=== PATIENT | female | born 1995 | race Caucasian/White ===

== ENCOUNTER 2019-10-17 00:31 | Inpatient (IN) | payer MEDICAID ==
[2019-10-17] MEDS ORDERED: Lidocaine 1% 50 ML MDV INJECT PRN (03:38)
[2019-10-17] MEDS ORDERED: Misoprostol 200 MCG Tab PO PRN (03:38)
[2019-10-17] MEDS ORDERED: Sodium Chloride 0.9% 2.5 ML Syringe FLUSH PRN (03:38)
[2019-10-17] MEDS ORDERED: Tranexamic Acid 1,000 MG in Sodium Chloride 0.9% 100 ML IV PRN (03:38)
[2019-10-17] MEDS ORDERED: Nalbuphine 10 MG/1 ML Vial IVPUSH PRN (03:38)
[2019-10-17] MEDS ORDERED: Water For Irrigation,Sterile 1,000 ML Container IRR PRN (03:38)
[2019-10-17] MEDS ORDERED: Butorphanol 1 MG/ML SDV IVPUSH PRN (03:38)
[2019-10-17] MEDS ORDERED: Methylergonovine 0.2 MG/1 ML Amp IM PRN (03:38)
[2019-10-17] MEDS ORDERED: Carboprost Tromethamine 250 MCG/1 ML Amp IM PRN (03:38)
[2019-10-17] MEDS ORDERED: Sodium Chloride 0.9% 10 ML SDV IV PRN (03:38)
[2019-10-17] MEDS ORDERED: Sodium Chloride 0.9% 10 ML Syringe FLUSH PRN (03:38)
[2019-10-17] MEDS ORDERED: Ondansetron 4 MG/2 ML SDV IVPUSH PRN (03:38)
[2019-10-17] MEDS ORDERED: Oxytocin/0.9 % Sodium Chloride 30 UNIT/500 ML BAG IV SCH ×2 (03:45→08:15)
[2019-10-17] MEDS: Lactated Ringers 1,000 ML IV SCH ×3 (03:55→08:01)
--- NOTE | 2019-10-17 04:20 | PCM.PREANE ---
Preanesthetic Assessment - Anesthesia/Transfusion/Family Hx Anesthesia History: Prior Anesthesia Without Reaction Transfusion History: No Prior Transfusion(s) - Review of Systems General: No Symptoms Pulmonary: No Symptoms Cardiovascular: No Symptoms Gastrointestinal: No Symptoms Neurological: No Symptoms Other: Reports: None - Physical Assessment Weight: 93.44 kg ASA Class: 2E Mental Status: Alert & Oriented x3 Dentition: Reports: Normal Dentition ROM/Head Extension: Full Lungs: Clear to Auscultation, Normal Respiratory Effort Cardiovascular: Regular Rate, Regular Rhythm - Lab Values: Laboratory Last Values WBC 12.66 K/uL (4.0-11.0) H 10/17/19 04:00 RBC 4.64 M/uL (4.30-5.90) 10/17/19 04:00 Hgb 13.4 g/dL (12.0-16.0) 10/17/19 04:00 Hct 39.6 % (36.0-46.0) 10/17/19 04:00 MCV 85.3 fL (80.0-98.0) 10/17/19 04:00 MCH 28.9 pg (27.0-32.0) 10/17/19 04:00 MCHC 33.8 g/dL (31.0-37.0) 10/17/19 04:00 RDW Std Deviation 43.7 fl (28.0-62.0) 10/17/19 04:00 RDW Coeff of Tana 14 % (11.0-15.0) 10/17/19 04:00 Plt Count 159 K/uL (150-400) 10/17/19 04:00 MPV 12.20 fL (7.40-12.00) H 10/17/19 04:00 Nucleated RBC % 0.0 /100WBC 10/17/19 04:00 Nucleated RBCs # 0 K/uL 10/17/19 04:00 - Allergies Allergies/Adverse Reactions: Allergies Allergy/AdvReac Type Severity Reaction Status Date / Time No Known Allergies Allergy Verified 03/31/19 19:43 - Acknowledgements Anesthesia Type Planned: Epidural Pt an Appropriate Candidate for the Planned Anesthesia: Yes Alternatives and Risks of Anesthesia Discussed w Pt/Guardian: Yes Pt/Guardian Understands and Agrees with Anesthesia Plan: Yes PreAnesthesia Questionnaire Other HEENT History: glasses Cardiovascular History: Reports: Other (See Below) Other Cardiovascular History: Preeclampsia this Respiratory History: Reports: Asthma Gastrointestinal History: Reports: GERD Genitourinary History: Reports: None 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: , Other (See Below) Other OB/BYN History: Preeclampsia this Musculoskeletal History: Reports: None Neurological History: Reports: None Psychiatric History: Reports: None Endocrine/Metabolic History: Reports: Obesity/BMI 30+ Hematologic History: Reports: None Immunologic History: Reports: None Oncologic (Cancer) History: Reports: None Dermatologic History: Reports: Eczema - Infectious Disease History Infectious Disease History: Reports: Chicken Pox - Past Surgical History Head Surgeries/Procedures: Reports: None - HOME MEDS Home Medications: Home Meds Albuterol Sulfate [Proair Respiclick] 2 puff INH Q6HR PRN 07/06/15 [History] - CURRENT (IN HOUSE) MEDS Current Meds: Current Medications Butorphanol Tartrate (Stadol) 1 mg IVPUSH Q1H PRN PRN Reason: Pain Carboprost Tromethamine (Hemabate Ds) 250 mcg IM ASDIRECTED PRN PRN Reason: Post Hemorrhage Tranexamic Acid 1,000 mg/ (Sodium Chloride) 110 mls @ 660 mls/hr IV ONETIME PRN PRN Reason: Bleeding Lactated Ringer's (Ringers, Lactated) 1,000 mls @ 150 mls/hr IV ASDIRECTED [facility] Last Admin: 10/17/19 04:12 Dose: 999 mls/hr Oxytocin/Sodium Chloride (Oxytocin 30 Unit/500 Ml-Ns) 30 unit in 500 mls @ 500 mls/hr IV TITRATE [facility] Lidocaine HCl (Xylocaine 1%) 50 ml INJECT ONETIME PRN PRN Reason: Laceration repair Methylergonovine Maleate (Methergine) 0.2 mg IM ASDIRECTED PRN PRN Reason: Post Hemorrhage Misoprostol (Cytotec) 200 mcg PO ONETIME PRN PRN Reason: Post Hemorrhage Nalbuphine HCl (Nubain) 10 mg IVPUSH Q1H PRN PRN Reason: Pain (severe 7-10) Ondansetron HCl (Zofran) 4 mg IVPUSH Q6H PRN PRN Reason: Nausea/Vomiting Sodium Chloride (Saline Flush) 10 ml FLUSH ASDIRECTED PRN PRN Reason: Keep Vein Open Sodium Chloride (Saline Flush) 2.5 ml FLUSH ASDIRECTED PRN PRN Reason: Keep Vein Open Sodium Chloride (Normal Saline) 10 ml IV ASDIRECTED PRN PRN Reason: IV Use Sterile Water (Sterile Water For Irrigation) 1,000 ml IRR ASDIRECTED PRN PRN Reason: delivery
[2019-10-17] MEDS ORDERED: fentaNYL 100 MCG/2 ML SDV ONE (04:24)
[2019-10-17] MEDS ORDERED: Bupivicaine/fentaNYL/NS 250 ML ONE (04:24)
[2019-10-17] MEDS ORDERED: Bupivacaine 0.25% 10 ML SDV ONE (04:24)
[2019-10-17] MEDS ORDERED: Terbutaline 1 MG/ML SDV SUBCUT PRN (08:02)
[2019-10-17] MEDS ORDERED: Docusate Sodium 100 MG Cap PO PRN (09:46)
[2019-10-17] MEDS ORDERED: Acetaminophen 500 MG Tab PO PRN ×2 (09:46)
[2019-10-17] MEDS ORDERED: Witch Hazel Medicated Pads 40/Jar TOP PRN (09:46)
[2019-10-17] MEDS ORDERED: oxyCODONE 5 MG Tab PO PRN (09:46)
[2019-10-17] MEDS ORDERED: Lanolin 100% Cream 7 GM Tube TOP PRN (09:46)
[2019-10-17] MEDS ORDERED: Bisacodyl 10 MG Supp RECTAL PRN (09:46)
[2019-10-17] MEDS ORDERED: Benzocaine/Menthol 20%-0.5% Spray 78 GM Cannister TOP PRN (09:46)
[2019-10-17] MEDS ORDERED: Ibuprofen 400 MG Tab PO PRN (09:46)
--- NOTE | 2019-10-17 09:53 | PCM.OPNOTE ---
- General Post-Op/Procedure Note Date of Surgery/Procedure: 10/17/19 Operative Procedure(s): /IP Findings: Viable male APGARs 9, 9 weight 3350 gm. Spontaneous delivery intact placenta with 3V cord Pre Op Diagnosis: 38 week IUP. Labor Post-Op Diagnosis: Same Anesthesia Technique: Epidural Primary Surgeon: Carmel Bourne EBL in mLs: 200 Complications: none known Condition: Good Free Text/Narrative:: Dictation [id number]
--- NOTE | 2019-10-17 10:39 | OR ---
SURGEON: Carmel Bourne M.D. DATE OF PROCEDURE: 10/17/2019 PREOPERATIVE DIAGNOSES: 1. A 38-4/7 weeks' intrauterine . 2. Active labor. POSTOPERATIVE DIAGNOSES: 1. A 38-4/7 weeks' intrauterine . 2. Active labor. PROCEDURE: Spontaneous vaginal delivery, intact perineum. PRIMARY SURGEON: Carmel Bourne MD. ANESTHESIA: Epidural. ESTIMATED BLOOD LOSS: 200 mL. COMPLICATIONS: None known. FINDINGS: Viable male. scores 9 at one minute and 9 at five minutes. Weight of 3350 g. Spontaneous delivery, intact placenta, 3-vessel cord. DISPOSITION: to nursery, mom in LDRP. 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 She was admitted, routine labs were drawn. IV hydration was initiated. As she became increasingly uncomfortable, underwent regional anesthesia in the form of epidural, became more comfortable. Shortly before 8 a.m., she was found to be 5 cm, 80% effaced, minus 1 station. However, after epidural, the contractions spaced considerably, therefore, was initiated on Pitocin augmentation. She responded nicely to this and shortly before 9 a.m. was found to be 8 and within the next half hour progressed to complete, 100% effaced, +2 station, and was ready to push. I was called for delivery. Upon my arrival, the patient was placed in modified dorsal lithotomy position, began pushing efforts. With next two contractions, able to push to deliver 's head atraumatically spontaneously, followed by anterior shoulder, posterior shoulder, and remainder of the body without difficulty. The infant's oropharynx and nares were bulb suctioned. Infant was handed off to her mother with attending nursing staff at side. After a delay, cord was clamped x2 and cut. Cord arterial, cord venous, cord blood sampling obtained. Light pressure was applied while the placenta was delivered spontaneously intact. Vigorous fundal uterine massage was then applied while 30 units of Pitocin was delivered in 500 mL of IV fluid. Upon inspection of cervix, vaginal sidewalls, and perineum, these were found to be intact. Uterus remained firm. Sponge and instrument count was correct. The patient remained in LDRP, to nursery. MAGGIE / KALIE /[id number]
[2019-10-17] MEDS: Ibuprofen 800 MG Tab PO PRN (18:48)
[2019-10-18] MEDS: Ibuprofen 800 MG Tab PO PRN (01:55)
[2019-10-18 08:30] VITALS: BP 125/81; PULSE 72
--- NOTE | 2019-10-18 08:41 | PCM48HPAN ---
Post Anesthesia Note - EVALUATION WITHIN 48HRS OF ANESTHETIC Vital Signs in Normal Range: Yes Patient Participated in Evaluation: Yes Respiratory Function Stable: Yes Airway Patent: Yes Cardiovascular Function Stable: Yes Hydration Status Stable: Yes Pain Control Satisfactory: Yes Nausea and Vomiting Control Satisfactory: Yes Mental Status Recovered: Yes Vital Signs: Last Vital Signs Temp 36.6 C 10/18/19 08:24 Pulse 72 10/18/19 08:24 Resp 15 10/18/19 08:24 BP 125/81 10/18/19 08:24 Pulse Ox 96 10/18/19 08:24
--- NOTE | 2019-10-18 09:53 | PCM.PNPP ---
- General Info Date of Service: 10/18/19 Functional Status: Reports: Pain Controlled, Tolerating Diet, Ambulating, Urinating - Review of Systems General: Reports: Fatigue. Denies: Fever, Weakness Pulmonary: Denies: Shortness of Breath Cardiovascular: Denies: Chest Pain, Palpitations, Lightheadedness Gastrointestinal: Denies: Abdominal Pain, Nausea, Vomiting Genitourinary: Denies: Flank Pain Musculoskeletal: Reports: No Symptoms Skin: Reports: No Symptoms Neurological: Reports: No Symptoms Psychiatric: Reports: No Symptoms - General Info Date of Service: 10/18/19 - Patient Data Vital Signs - Most Recent: Last Vital Signs Temp 36.6 C 10/18/19 08:24 Pulse 72 10/18/19 08:24 Resp 15 10/18/19 08:24 BP 125/81 10/18/19 08:24 Pulse Ox 96 10/18/19 08:24 Weight - Most Recent: 93.44 kg Lab Results - Last 24 Hours: Laboratory Results - last 24 hr 10/17/19 10/18/19 Range/Units 09:34 06:29 Hgb 12.7 (12.0-16.0) g/dL Hct 38.4 (36.0-46.0) % Cord ABG pH 7.316 (7.18-7.38) Cord ABG Base Excess -5 (-10--2) Cord VBG pH 7.317 (7.25-7.45) Cord VBG Base Excess -5 (-10--2) Med Orders - Current: Current Medications Acetaminophen (Tylenol Extra Strength) 500 mg PO Q4H PRN PRN Reason: Pain Acetaminophen (Tylenol Extra Strength) 1,000 mg PO Q4H PRN PRN Reason: Pain Last Admin: 10/17/19 22:33 Dose: 1,000 mg Benzocaine/Menthol (Dermoplast Pain Relief 20%-0.5% Hull) 78 gm TOP ASDIRECTED PRN PRN Reason: Perineal Comfort Measure Last Admin: 10/17/19 17:57 Dose: 1 canister Bisacodyl (Dulcolax) 10 mg RECTAL ONETIME PRN PRN Reason: Constipation Butorphanol Tartrate (Stadol) 1 mg IVPUSH Q1H PRN PRN Reason: Pain Carboprost Tromethamine (Hemabate Ds) 250 mcg IM ASDIRECTED PRN PRN Reason: Post Hemorrhage Docusate Sodium (Colace) 100 mg PO BID PRN PRN Reason: Constipation Last Admin: 10/18/19 08:07 Dose: 100 mg Emollient Ointment (Lansinoh Hpa) 0 gm TOP ASDIRECTED PRN PRN Reason: Sore Nipples Tranexamic Acid 1,000 mg/ (Sodium Chloride) 110 mls @ 660 mls/hr IV ONETIME PRN PRN Reason: Bleeding Lactated Ringer's (Ringers, Lactated) 1,000 mls @ 150 mls/hr IV ASDIRECTED [facility] Last Admin: 10/17/19 08:01 Dose: 125 mls/hr Oxytocin/Sodium Chloride (Oxytocin 30 Unit/500 Ml-Ns) 30 unit in 500 mls @ 500 mls/hr IV TITRATE [facility] Oxytocin/Sodium Chloride (Oxytocin 30 Unit/500 Ml-Ns) 30 unit in 500 mls @ 2 mls/hr IV TITRATE [facility]; Protocol Last Titration: 10/17/19 09:37 Dose: 500 munits/min, 500 mls/hr Ibuprofen (Motrin) 400 mg PO Q4H PRN PRN Reason: Pain Ibuprofen (Motrin) 800 mg PO Q6H PRN PRN Reason: Pain Last Admin: 10/18/19 01:55 Dose: 800 mg Lidocaine HCl (Xylocaine 1%) 50 ml INJECT ONETIME PRN PRN Reason: Laceration repair Methylergonovine Maleate (Methergine) 0.2 mg IM ASDIRECTED PRN PRN Reason: Post Hemorrhage Misoprostol (Cytotec) 200 mcg PO ONETIME PRN PRN Reason: Post Hemorrhage Nalbuphine HCl (Nubain) 10 mg IVPUSH Q1H PRN PRN Reason: Pain (severe 7-10) Ondansetron HCl (Zofran) 4 mg IVPUSH Q6H PRN PRN Reason: Nausea/Vomiting Last Admin: 10/17/19 06:29 Dose: 4 mg Oxycodone HCl (Oxycodone) 5 mg PO Q2H PRN PRN Reason: Pain Sodium Chloride (Saline Flush) 10 ml FLUSH ASDIRECTED PRN PRN Reason: Keep Vein Open Sodium Chloride (Saline Flush) 2.5 ml FLUSH ASDIRECTED PRN PRN Reason: Keep Vein Open Sodium Chloride (Normal Saline) 10 ml IV ASDIRECTED PRN PRN Reason: IV Use Sterile Water (Sterile Water For Irrigation) 1,000 ml IRR ASDIRECTED PRN PRN Reason: delivery Terbutaline Sulfate (Brethine) 0.25 mg SUBCUT ASDIRECTED PRN PRN Reason: Tacysystole Witch Angie (Tucks) 1 pad TOP ASDIRECTED PRN PRN Reason: comfort care Discontinued Medications Bupivacaine HCl (Sensorcaine-Mpf 0.25%) Confirm Administered Dose 10 ml .ROUTE .STK-MED ONE Stop: 10/17/19 04:25 Fentanyl (Sublimaze) Confirm Administered Dose 100 mcg .ROUTE .STK-MED ONE Stop: 10/17/19 04:25 Fentanyl/Bupivacaine HCl (Fentanyl/Bupivacaine/Ns 2 Mcg-0.125% 250 Ml) Confirm Administered Dose 250 mls @ as directed .ROUTE .STK-MED ONE Stop: 10/17/19 04:25 - Interaction Support Person: Significant Other - Recovery Exam Fundal Tone: Firm Fundal Level: At Umbilicus Fundal Placement: Midline Lochia Amount: Scant Lochia Color: Rubra/Red Perineum Description: Intact, Minimal Bruising/Swelling Episiotomy/Laceration: None Bladder Status: Voiding Urinary Elimination: Voided - Exam General: Alert, Oriented Lungs: Normal Respiratory Effort Cardiovascular: Regular Rate, Regular Rhythm GI/Abdominal Exam: Normal Bowel Sounds, Soft Extremities: Pedal Edema (trace). No: Lindsey's Sign Skin: Warm, Dry, Intact Neurological: No New Focal Deficit Psy/Mental Status: Alert, Normal Affect, Normal Mood - Problem List & Annotations (1) Vaginal delivery SNOMED Code(s): 321692299 Code(s): O80 - ENCOUNTER FOR FULL-TERM UNCOMPLICATED DELIVERY Status: Acute Current Visit: No - Problem List Review Problem List Initiated/Reviewed/Updated: Yes - My Orders Last 24 Hours: My Active Orders 10/17/19 09:46 Notify Provider Vital Signs [RC] ASDIRECTED Acetaminophen [Tylenol Extra Strength] 1,000 mg PO Q4H PRN Acetaminophen [Tylenol Extra Strength] 500 mg PO Q4H PRN Benzocaine/Menthol [Dermoplast Pain Relief 20%-0.5% Hull] 78 gm TOP ASDIRECTED PRN Docusate Sodium [Colace] 100 mg PO BID PRN Ibuprofen [Motrin] 400 mg PO Q4H PRN Ibuprofen [Motrin] 800 mg PO Q6H PRN Lanolin [Lansinoh HPA] See Dose Instructions TOP ASDIRECTED PRN Witch Angie [Tucks] 1 pad TOP ASDIRECTED PRN bisacodyL [Dulcolax] 10 mg RECTAL ONETIME PRN oxyCODONE 5 mg PO Q2H PRN 10/17/19 09:47 Patient Status [ADT] Routine Vital Signs [RC] PER UNIT ROUTINE Assess Lochia [WOMSER] Per Unit Routine Assess Uterine Involution [WOMSER] Per Unit Routine Ice Therapy [OM.PC] Per Unit Routine Perineal Care [OM.PC] Per Unit Routine Peripheral IV Discontinue [OM.PC] Routine Sitz Bath [OM.PC] Per Unit Routine 10/17/19 Lunch Regular Diet [DIET] 10/18/19 09:51 Ready for Discharge [RC] PER UNIT ROUTINE - Assessment Assessment:: PPD 1 status post - Plan Plan:: Doing well overall, discharge instructions reviewed. Follow up at [facility] 6 weeks. Discharge to home today.
== END 2019-10-18 13:15 | disposition home or self-care (01) | DRG 807 ==
LOC: MW.OB 00:31 → MW.OBCHECK 00:31 → MW.OB 03:38 → OBSVTOIN 09:47 → MW.OB 15:34
PROVIDERS: ADMIT Obstetrics & Gynecology; ATTEND Obstetrics & Gynecology
PROC: 10E0XZZ Delivery of Products of Conception, External Approach (ICD-10-PCS; principal; 2019-10-17)
PROC: 10907ZC Drainage of Amniotic Fluid, Therapeutic from Products of Conception, Via Natural or Artificial Opening (ICD-10-PCS; 2019-10-17)
PROC: 3E0R3BZ Introduction of Anesthetic Agent into Spinal Canal, Percutaneous Approach (ICD-10-PCS; 2019-10-17)
DX: O99.52 Diseases of the respiratory system complicating childbirth (principal); Z37.0 Single live birth; J45.909 Unspecified asthma, uncomplicated; O99.214 Obesity complicating childbirth; E66.9 Obesity, unspecified; Z3A.38 38 weeks gestation of pregnancy
CPT/HCPCS: 01967; 36415; 51702; 59025; 59409; 82803; 85014; 85018; 85027; 86593; 86850; 86900; 86901; A9270-GY; J2405; J2590; J7120

== ENCOUNTER 2021-11-26 00:55 | Emergency (ER) | payer SELFPAY ==
[2021-11-26] MEDS ORDERED: Ketorolac 30 MG/ML SDV IM ONE (01:09)
[2021-11-26 02:10] LABS: CORONAVIRUS COVID-19 NAA NEGATIVE (NEGATIVE); INFLUENZA A NAA POSITIVE (NEGATIVE); INFLUENZA B NAA NEGATIVE (NEGATIVE)
[2021-11-26 02:52] VITALS: BP 118/78; PULSE 102
== END 2021-11-26 02:40 | disposition home or self-care (01) ==
LOC: MW.ED 00:55
DX: J10.1 Influenza due to other identified influenza virus with other respiratory manifestations (principal); E66.9 Obesity, unspecified; Z68.30 Body mass index [BMI] 30.0-30.9, adult; Z20.822 Contact with and (suspected) exposure to COVID-19
CPT/HCPCS: 0240U; 71045; 93005; 96372; 99284; J1885